=== PATIENT | male | born 1955 | race American Indian/Alaskan Native ===

== ENCOUNTER 2021-10-05 06:59 | Day surgery (SDC) | payer MEDICARE, OTHER ==
[2021-10-04 07:20] LABS: Hemoglobin 8.5 gm/dl (11.8-15.2); Mean Corpuscular HGB Conc 30 % (32-34); Mean Corpuscular Volume 100 fl (84-94); Platelet Count 193 K/mm3 (140-440); Red Blood Count 2.81 M/mm3 (3.65-5.03); Red Cell Distribution Width 17.8 % (13.2-15.2)
--- NOTE | 2021-10-04 07:29 | Anesthesia Day of Surgery ---
Anesthesia Day of Surgery - Day of Surgery Patient Examined: Yes Patient H&P Reviewed: Yes Patient is NPO: Yes
[2021-10-04 07:34] LABS: Blood Urea Nitrogen 66 mg/dL (9-20); Calcium 9.2 mg/dL (8.4-10.2); Hemolysis Index 309
--- NOTE | 2021-10-04 07:34 | Anesthesia Consultation ---
Anesthesia Consult and Med Hx Date of service: 10/04/21 - Airway Anesthetic Teeth Evaluation: Chipped ROM Head & Neck: Adequate Mental/Hyoid Distance: Adequate Mallampati Class: Class II Intubation Access Assessment: Good - Pre-Operative Health Status ASA Pre-Surgery Classification: ASA3 Proposed Anesthetic Plan: General - Pulmonary Hx Smoking: Yes (STOPPED 15 YEARS AGO) Home Oxygen Therapy: Yes Hx Sleep Apnea: Yes - Cardiovascular System Hx Hypertension: Yes - Central Nervous System Hx Psychiatric Problems: No - Endocrine Hx Renal Disease: Yes (Dialysis ) Hx End Stage Renal Disease: Yes Hx Liver Disease: Yes (Ascites) - Hematic Hx Anemia: Yes - Other Systems Hx Alcohol Use: No Hx Substance Use: No Hx Cancer: Yes (Prostate) Hx Obesity: No
[2021-10-04 07:37] LABS: BUN/Creatinine Ratio 6
[~2021-10-05 06:59] MED LIST: ACETAMINOPHEN 325 MG TAB PO NR; BUPIVACAINE/PF (0.25%) 2.5 MG/ML 30 ML VIAL INFILTRATI ONE; HYDROmorphone 1 MG/1 ML INJ IV PRN; LIDOCAINE (1%) 10 MG/1 ML VIAL 20 ML MDV ONE; LIDOCAINE MPF (2%) 20 MG/1 ML VIAL 5 ML ONE; MIDAZOLAM 2 MG/2 ML INJ IV NR; ONDANSETRON 4 MG/2 ML INJ IV NR; ONDANSETRON 4 MG/2 ML INJ IV PRN; ROCURONIUM 50 MG/5 ML INJ IV ONE; SODIUM CHLORIDE 0.9% 1000 ML 1,000 ML IV SCH; SODIUM CHLORIDE 0.9% 1000 ML 1,000 ML ONE; SODIUM CHLORIDE P/F VIAL 10 ML 10 ML ONE; ceFAZolin/STERILE WATER 2 GM/20 ML SYRINGE IV NR; dexAMETHasone 4 MG/ML VIAL ONE; fentaNYL 100 MCG/2 ML INJ ONE; propofoL 200 MG/20 ML VIAL IV ONE
[2021-10-05] MEDS ORDERED: ceFAZolin/STERILE WATER 2 GM/20 ML SYRINGE IV NR ×2 (07:25)
[2021-10-05] MEDS ORDERED: SODIUM CHLORIDE 0.9% 1000 ML 1,000 ML ONE (07:33)
[2021-10-05 07:48] LABS: Calcium 9.4 mg/dL (8.4-10.2)
[2021-10-05] MEDS ORDERED: dexAMETHasone 4 MG/ML VIAL ONE (08:05)
[2021-10-05] MEDS ORDERED: fentaNYL 100 MCG/2 ML INJ ONE (08:05)
[2021-10-05] MEDS ORDERED: MIDAZOLAM 2 MG/2 ML INJ ONE (08:05)
[2021-10-05] MEDS ORDERED: BUPIVACAINE-EPINEPHRINE/PF 0.25%-1:200,000 (30 ML) VIAL INFILTRATI ONE (08:05)
[2021-10-05] MEDS ORDERED: SODIUM CHLORIDE 0.9% 1000 ML 1,000 ML IV SCH (08:40)
[2021-10-05] MEDS ORDERED: LIDOCAINE (1%) 10 MG/1 ML VIAL 20 ML MDV ONE ×2 (08:40→09:45)
[2021-10-05] MEDS ORDERED: propofoL 200 MG/20 ML VIAL IV ONE (09:13)
[2021-10-05] MEDS ORDERED: ePHEDrine SULFATE 50 MG/1 ML INJ ONE (09:13)
[2021-10-05] MEDS ORDERED: ceFAZolin/Water 2 GM/20 ML 2 GM/20 ML SYRINGE IV ONE (09:28)
[2021-10-05] MEDS ORDERED: BUPIVACAINE/PF (0.5%) 5 MG/1 ML 30 ML VIAL INFILTRATI ONE ×2 (09:45→12:15)
[2021-10-05] MEDS ORDERED: ONDANSETRON 4 MG/2 ML INJ ONE (10:23)
[2021-10-05] MEDS ORDERED: dexAMETHasone 20 MG/5 ML VIAL ONE (10:23)
[2021-10-05] MEDS ORDERED: ROCURONIUM 50 MG/5 ML INJ IV ONE (10:23)
[2021-10-05] MEDS ORDERED: SODIUM CHLORIDE 0.9% IRRIG SOLN 2000 ML IR ONE (12:00)
[2021-10-05] MEDS ORDERED: WATER FOR IRRIG STERILE 1,500 ML BOTTLE IR ONE (12:00)
[2021-10-05] MEDS ORDERED: LIDOCAINE (1%) 10 MG/1 ML VIAL 20 ML MDV INFILTRATI ONE (12:15)
--- NOTE | 2021-10-05 13:24 | Operative Report ---
Operative Report Operative Report: Date: 10/04/2021 Preop diagnosis: Bilateral inguinal hernia Postop diagnosis: Same Procedure: Laparoscopic repair of bilateral inguinal hernia with mesh Surgeon: Dr. Coburn Financial Advisor Trainee: Dr. Alonso Anesthesia: General endotracheal anesthesia Specimen: None Estimated blood loss: 50 cc Procedure: Patient is taken to the OR and under general tracheal anesthesia timeout is completed consent on the chart. Patient received 2 g of IV Ancef and had a Paiz catheter placed. Both groins were prepped with ChloraPrep and draped in a sterile fashion prep extends to above the umbilicus. Infraumbilical incision is made carried sharply to the rectus sheath on the right side. The balloon Spacemaker is then placed and deployed under camera surveillance. The balloon Spacemaker is then removed and replaced without sign trocar. A 30 degree 10 mm camera is used to direct the procedure. 2 ports are placed 5 mm in size in the midline into the properitoneal space. The properitoneal space on the right side is dissected bluntly. The oblique muscles are exposed. Dissection is continued medially until the cord structures are encountered. The hernia sac is dissected away from the cord structures to the level of the external iliac vessels. The sac is transected with electrocautery grady. The end of the sac is co ntrolled with a an Endoloop of 2-0 Vicryl. A large 3D max mesh is advanced into the properitoneal space and positioned over the hernia defect. The medial aspect of the mesh is secured in place over the pubic tubercle with a absorbable tach. The properitoneal space on the left side is dissected bluntly. The oblique muscles are exposed. Dissection is continued medially until the cord structures are encountered. The hernia sac is dissected away from the cord structures to the level of the external iliac vessels. The sac is transected with electrocautery grady. The end of the sac is controlled with a an Endoloop of 2-0 Vicryl. A large 3D max mesh is advanced into the properitoneal space and positioned over the hernia defect. The medial aspect of the mesh is secured in place over the pubic tubercle with a absorbable tach. The sac is transected with electrocautery grady. The end of the sac is controlled with a an Endoloop of 2-0 Vicryl. A large 3D max mesh is advanced into the properitoneal space and positioned over the hernia defect. The medial aspect of the mesh is secured in place over the pubic tubercle with a absorbable tach. Patient tolerated seizure well. CO2 is allowed to exit the properitoneal space. Trochars are removed. A 0 Vicryl on a UR stitch is used to close the fascial defect in the infraumbilical position. The remaining ports and incisions are closed with 4-0 Monocryl and Dermabond.
[2021-10-05] MEDS ORDERED: HYDROmorphone 1 MG/1 ML INJ ONE (13:28)
[2021-10-05] MEDS ORDERED: oxyCODONE /ACETAMINOPHEN 5-325MG TAB ONE (13:29)
--- NOTE | 2021-10-05 16:20 | Post Anesthesia Evaluation ---
- Post Anesthesia Evaluation Patient Participated: Yes Airway Patent: Yes Stable Respiratory Function: Yes Nausea/Vomiting: No Temp > 96.8F: Yes Pain Manageable: Yes Adequeate Hydration: Yes Anesthesia Complications: No Block Receding Appropriately: Not Applicable Patient on Ventilator: No
[2021-10-05] MEDS ORDERED: oxyCODONE /ACETAMINOPHEN 5-325MG TAB PO ONE (17:00)
[2021-10-08 10:57] VITALS: BP 151/79
== END 2021-10-05 07:00 | disposition home or self-care (01) ==
LOC: OR 06:59
PROVIDERS: ATTEND Surgery
DX: K40.20 Bilateral inguinal hernia, without obstruction or gangrene, not specified as recurrent (principal); I12.0 Hypertensive chronic kidney disease with stage 5 chronic kidney disease or end stage renal disease; N18.6 End stage renal disease; E78.00 Pure hypercholesterolemia, unspecified; Z87.891 Personal history of nicotine dependence; Z99.2 Dependence on renal dialysis; Z79.899 Other long term (current) drug therapy; Z98.890 Other specified postprocedural states; Z20.822 Contact with and (suspected) exposure to COVID-19
CPT/HCPCS: 36415; 49650; 64450; 80048; 84132; 85027; C1726; C1781; J0690; J1100; J1170; J2250; J2405; J2704; J3010; J3490; J7030; U0003; J7120; J7121; Q0162

== ENCOUNTER 2021-10-10 14:47 | Outpatient (CLI) | payer MEDICARE, OTHER ==
[2021-10-10 15:11] LABS: Basophils # (Auto) 0.1 K/mm3 (0.0-0.1); Eosinophils # (Auto) 0.2 K/mm3 (0.0-0.4); Eosinophils % (Auto) 2.9 % (0.0-4.3); Hematocrit 26.5 % (35.5-45.6); Hemoglobin 8.4 gm/dl (11.8-15.2); Lymphocytes # (Auto) 0.5 K/mm3 (1.2-5.4); Lymphocytes % (Auto) 7.4 % (13.4-35.0); Mean Corpuscular HGB Conc 32 % (32-34); Mean Corpuscular Volume 100 fl (84-94); Monocytes % (Auto) 15.4 % (0.0-7.3); Platelet Count 181 K/mm3 (140-440); Red Blood Count 2.65 M/mm3 (3.65-5.03); Red Cell Distribution Width 17.8 % (13.2-15.2)
[2021-10-10 15:27] LABS: Calcium 8.6 mg/dL (8.4-10.2)
== END 2021-10-10 14:48 | disposition home or self-care (01) ==
LOC: LAB 14:47
PROVIDERS: ATTEND Surgery
DX: R10.2 Pelvic and perineal pain (principal)
CPT/HCPCS: 36415; 80048; 85025

== ENCOUNTER 2022-01-02 10:27 | Outpatient (CLI) | payer MEDICARE, OTHER ==
--- NOTE | 2022-01-02 11:51 | Cat Scan Report ---
CT ABDOMEN AND PELVIS WITHOUT CONTRAST HISTORY: R19.09 OTHER INTRA-ABDOMINAL AND PELVIC SWELLING MASS AND LUMP COMPARISON: 09/08/2021 TECHNIQUE: Axial CT images were obtained through the abdomen and pelvis without IV contrast. Sagittal and coronal reformatted images. All CT scans at this location are performed using CT dose reduction for ALARA by means of automated exposure control. FINDINGS: CT ABDOMEN: Lung Bases: Mild cardiomegaly and trace bilateral pleural effusions are present. The visualized lung parenchyma is adequately aerated. Liver: No significant abnormality. Biliary: The gallbladder is partially contracted but no obvious gallstones. No biliary dilatation. Spleen: No significant abnormality. Unenlarged. Pancreas: No significant abnormality. Adrenals: No significant abnormality. Kidneys: Scattered small bilateral renal cysts are unchanged. The kidneys appear mildly atrophic. No obvious mass on noncontrast CT. No nephrolithiasis or hydronephrosis. Lymphatics: No pathologic adenopathy. Vasculature: Moderate atherosclerotic disease in the aorta and iliac arteries without acute abnormali ty, unchanged. Bowel/Peritoneum: Previously described left inguinal hernia containing short segment of small bowel i s no longer seen. There is however a moderate degree of fluid in the left inguinal canal extending to the superior scrotal sac. The inferior scrotal sac is not included. There is no evidence for bowel o bstruction or focal inflammation. No obvious mass on this limited noncontrast CT. The appendix is nor mal. There is small perihepatic, perisplenic and pelvic ascites. No abscess or free air. CT PELVIS: : The bladder is mostly empty but unremarkable. Normal prostate gland. Osseous Structures: No acute abnormality or bone lesion. Stable mild lumbar spondylosis. Additional Findings: None IMPRESSION: Left inguinal hernia and mild small bowel obstruction pattern has resolved since the previous exam as described. There is however a moderate degree of fluid in the left inguinal canal. Mild CHF. Small ascites. No acute inflammatory process is identified. Signer Name: Shade Franco Jr, MD Signed: 01/02/2022 11:46 AM Workstation Name: [id number]
== END 2022-01-02 10:28 | disposition home or self-care (01) ==
LOC: CT 10:27
PROVIDERS: ATTEND Surgery
DX: N28.1 Cyst of kidney, acquired (principal); J90 Pleural effusion, not elsewhere classified; I51.7 Cardiomegaly; I70.0 Atherosclerosis of aorta; K40.90 Unilateral inguinal hernia, without obstruction or gangrene, not specified as recurrent; I50.9 Heart failure, unspecified; R19.09 Other intra-abdominal and pelvic swelling, mass and lump
CPT/HCPCS: 74176

== ENCOUNTER 2022-01-12 04:08 | Emergency (ER) | payer MEDICARE, OTHER | END 2022-01-12 05:01 | disposition left against medical advice (07) | LOC: ED 04:08 | DX: R10.9 Unspecified abdominal pain (principal); Z53.21 Procedure and treatment not carried out due to patient leaving prior to being seen by health care provider ==

== ENCOUNTER 2022-01-12 06:55 | Emergency (ER) | payer MEDICARE, OTHER ==
[2022-01-12] MEDS ORDERED: ONDANSETRON 4 MG/2 ML INJ IV ONE (07:24)
[2022-01-12] MEDS ORDERED: SODIUM CHLORIDE 0.9% 500 ML 500 ML IV ONE (07:25)
--- NOTE | 2022-01-12 07:31 | Emergency Department Report ---
HPI - General Chief Complaint: Abdominal Pain Time Seen by Provider: 01/12/22 07:16 - HPI HPI: Room 3 The patient is a 66-year-old male present with chief complaint of nausea vomiting diarrhea. The patient states he began a new medication for eczema 2 weeks ago Dupixent. The patient states for the past week he has had nausea vomiting and diarrhea. Patient states he is vomiting approximately 4-5 times a day and having 6 episodes of diarrhea a day. Patient states he feels weak and dehydrated. Patient denies any recent antibiotic use. Patient denies history of fever. Patient currently denies abdominal pain. Patient has a history end- stage renal disease and normally goes every Friday and Friday but received dialysis yesterday. ED Past Medical Hx - Past Medical History Hx Hypertension: Yes Hx Congestive Heart Failure: Yes Hx Liver Disease: Yes (Ascites) Hx Renal Disease: Yes (Dialysis ) Hx of Cancer: Yes (Prostate CA status post brachytherapy) Additional medical history: Abdominal hernia - Surgical History Additional Surgical History: Prostate seed implant, left upper extremity fist raeann, hernia repair - Family History Family history: no significant - Social History Smoking Status: Former Smoker (None x20 years) Substance Use Type: None - Medications Home Medications: Home Medications Medication Instructions Recorded Confirmed Last Taken Type AtorvaSTATin [Lipitor] 40 mg PO QHS 09/10/21 10/05/21 10/04/21 20:00 History Sildenafil [Revatio] 40 mg PO TID 09/10/21 10/05/21 10/04/21 17:00 History Spironolactone [Aldactone] 50 mg PO QDAY 09/10/21 10/05/21 10/04/21 09:00 History Torsemide [Demadex] 200 mg PO QAM&QHS 09/10/21 10/05/21 10/04/21 20:00 History carvediloL [Coreg] 25 mg PO BID 09/10/21 10/05/21 10/05/21 05:00 History cloNIDine [Catapres] 0.2 mg PO BID 09/10/21 10/05/21 10/05/21 05:00 History Ondansetron [Zofran Odt] 4 mg PO TID 10/01/21 10/05/21 10/04/21 20:00 History Sucroferric Oxyhydroxide(Nf) 1,000 mg PO TIDAC 10/01/21 10/05/21 10/04/21 17:00 History [Velphoro (Nf)] cloNIDine-TTS PATCH [Catapres-Tts 1 patch TD Q7D 10/01/21 10/05/21 09/30/21 09:00 History 0.3mg Patch] Diphenoxylate/Atropine [Lomotil] 2 tab PO QID PRN #20 01/12/22 Unknown Rx HYDROcodone/APAP 5-325 [[place] 1 - 2 each PO Q6HR PRN #10 tablet 01/12/22 Unknown Rx 5/325] Ondansetron [Zofran ODT TAB] 8 mg PO Q8HR #20 tab.rapdis 01/12/22 Unknown Rx ED Review of Systems ROS: Stated complaint: SICK ON STOMACH Other details as noted in HPI Constitutional: denies: fever Eyes: denies: eye pain ENT: denies: throat pain Respiratory: no symptoms reported Cardiovascular: denies: chest pain Endocrine: no symptoms reported Gastrointestinal: nausea, vomiting, diarrhea. denies: abdominal pain Genitourinary: denies: testicular pain Musculoskeletal: denies: back pain Neurological: denies: headache Physical Exam - Physical Exam Physical Exam: GENERAL: The patient is well-developed well-nourished male lying on stretcher not appearing to be in acute distress. [] HEENT: Normocephalic. Atraumatic. Extraocular motions are intact. Patient has moist mucous membranes. NECK: Supple. Trachea midline CHEST/LUNGS: Clear to auscultation. There is no respiratory distress noted. HEART/CARDIOVASCULAR: Regular. There is no tachycardia. There is no gallop rub or murmur. ABDOMEN: Abdomen is soft, with mild discomfort to palpation in the left lower quadrant. There is no rebound or guard. Patient has normal bowel sounds. There is no abdominal distention. SKIN: There is no rash. There is no edema. There is no diaphoresis. NEURO: The patient is awake, alert, and oriented. The patient is cooperative. The patient has no focal neurologic deficits. The patient has normal speech. GCS 15 MUSCULOSKELETAL: There is no evidence of acute injury. ED Medical Decision Making - Lab Data Result diagrams: 01/12/22 07:36 01/12/22 07:36 - Radiology Data Radiology results: report reviewed (CT abdomen pelvis), image reviewed (CT abdomen pelvis) Signed Patient: KEREN REINA MR#: [id number] : 1955 ct:[id number] Age/Sex: 66 / M ADM Date: 01/12/22 Loc: ED Attending Dr: Ordering Physician: FERNANDO STEPHEN MD Date of Service: 01/12/22 Procedure(s): CT abdomen pelvis wo con Accession Number(s): [id number] cc: FERNANDO STEPHEN MD CT ABDOMEN AND PELVIS WITHOUT CONTRAST INDICATION / CLINICAL INFORMATION: LLQ tenderness, N/V/D WO CONTRAST. TECHNIQUE: Axial CT images were obtained through the abdomen and pelvis without IV contrast. All CT scans at this location are performed using CT dose reduction for ALARA by means of automated exposure control. COMPARISON: 01/02/2022 FINDINGS: LOWER CHEST: Mild pulmonary edema and small bilateral effusions, overall similar to reference. LIVER: No significant abnormality. GALLBLADDER: Thick-walled but similar to reference, likely attributable to fluid status. PANCREAS: No significant abnormality. SPLEEN: No significant abnormality. ADRENALS: No significant abnormality. RIGHT KIDNEY / URETER: Multiple cysts. LEFT KIDNEY / URETER: Multiple cysts. STOMACH / SMALL B OWEL: No significant abnormality. COLON: Diverticulosis without acute inflammation. APPENDIX: No acute abnormality. Inspissated stool versus appendicolith within the appendix. PERITONEUM: Small amount of abdominopelvic ascites. LYMPH NODES: Single mildly enlarged retroperitoneal lymph node within the left periaortic region at the level of the left renal vein is unchanged in size and measures approximately 1.3 cm in short axis dimension. AORTA / ARTERIES/ VEINS: Mild atherosclerotic calcification without acute abnormality. URINARY BLADDER: No significant abnormality. REPRODUCTIVE ORGANS: Fluid noted within the left inguinal canal, mildly decreased in amount compared to reference exam ADDITIONAL FINDINGS: None. SKELETAL SYSTEM: No significant abnormality. IMPRESSION: 1. No acute abnormality in the abdomen or pelvis. 2. Findings suggestive of volume overload with mild pulmonary edema, small bilateral effusions and small amount of abdominopelvic ascites as above. This is overall similar to reference exam from January 02. 3. Other chronic findings as above. Signer Name: Nic Gloria MD Signed: 01/12/2022 8:19 AM Workstation Name: [id number] Transcribed By: SB Dictated By: NIC GLORIA MD Electronically Authenticated By: NIC GLORIA MD Signed Date/Time: 01/12/22818 DD/ 3 TD/TT: Print Cancel - Differential Diagnosis Gastroenteritis, partial SBO, diverticulitis, colitis Critical care attestation.: If time is entered above; I have spent that time in minutes in the direct care of this critically ill patient, excluding procedure time. ED Disposition Clinical Impression: Nausea vomiting and diarrhea, Transaminitis Disposition: HOME / SELF CARE / HOMELESS Is pt being admited?: No Does the pt Need Aspirin: No Condition: Stable Instructions: Nausea and Vomiting, Adult, [id number], Diarrhea, Adult, [id number] Additional Instructions: Return to the emergency department should you develop worsening symptoms, inability to tolerate food or liquids, high fever or any other concerns Prescriptions: Diphenoxylate/Atropine [Lomotil] 2 tab PO QID PRN #20 PRN Reason: Diarrhea HYDROcodone/APAP 5-325 [[place] 5/325] 1 - 2 each PO Q6HR PRN #10 tablet PRN Reason: Pain Ondansetron [Zofran ODT TAB] 8 mg PO Q8HR #20 tab.rapdis Referrals: KRUNAL LLAMAS MD [Primary Care Provider] - 3-5 Days LISSY DANIELLE MD [Staff Physician] - 3-5 Days (Dr. Danielle is a cpr instructor. Please follow-up with him for further evaluation) Time of Disposition: 08:53
[2022-01-12 07:59] LABS: Hematocrit 30.6 % (35.5-45.6); Mean Corpuscular HGB Conc 33 % (32-34); Mean Corpuscular Volume 97 fl (84-94); Platelet Count 189 K/mm3 (140-440); Red Blood Count 3.14 M/mm3 (3.65-5.03); Red Cell Distribution Width 18.7 % (13.2-15.2)
[2022-01-12 08:21] LABS: Albumin 4.4 g/dL (3.9-5); Calcium 9.5 mg/dL (8.4-10.2)
--- NOTE | 2022-01-12 08:23 | Cat Scan Report ---
CT ABDOMEN AND PELVIS WITHOUT CONTRAST INDICATION / CLINICAL INFORMATION: LLQ tenderness, N/V/D WO CONTRAST. TECHNIQUE: Axial CT images were obtained through the abdomen and pelvis without IV contrast. All CT scans at this location are performed using CT dose reduction for ALARA by means of automated exposure control. COMPARISON: 01/02/2022 FINDINGS: LOWER CHEST: Mild pulmonary edema and small bilateral effusions, overall similar to reference. LIVER: No significant abnormality. GALLBLADDER: Thick-walled but similar to reference, likely attributable to fluid status. PANCREAS: No significant abnormality. SPLEEN: No significant abnormality. ADRENALS: No significant abnormality. RIGHT KIDNEY / URETER: Multiple cysts. LEFT KIDNEY / URETER: Multiple cysts. STOMACH / SMALL BOWEL: No significant abnormality. COLON: Diverticulosis without acute inflammation. APPENDIX: No acute abnormality. Inspissated stool versus appendicolith within the appendix. PERITONEUM: Small amount of abdominopelvic ascites. LYMPH NODES: Single mildly enlarged retroperitoneal lymph node within the left periaortic region at t he level of the left renal vein is unchanged in size and measures approximately 1.3 cm in short axis dimension. AORTA / ARTERIES/ VEINS: Mild atherosclerotic calcification without acute abnormality. URINARY BLADDER: No significant abnormality. REPRODUCTIVE ORGANS: Fluid noted within the left inguinal canal, mildly decreased in amount compared to reference exam ADDITIONAL FINDINGS: None. SKELETAL SYSTEM: No significant abnormality. IMPRESSION: 1. No acute abnormality in the abdomen or pelvis. 2. Findings suggestive of volume overload with mild pulmonary edema, small bilateral effusions and s mall amount of abdominopelvic ascites as above. This is overall similar to reference exam from January 02. 3. Other chronic findings as above. Signer Name: Nic Gloria MD Signed: 01/12/2022 8:19 AM Workstation Name: [id number]
[2022-01-12] MEDS ORDERED: DIPHENOXYLATE/ATROPINE TAB PO ONE (08:39)
[2022-01-12 08:45] VITALS: BP 151/88
[2022-01-12 09:08] LABS: Total Cells Counted 100
[2022-01-12 09:09] LABS: Anisocytosis 1+; Burr Cells Few; Ovalocytes Few; Platelet Estimate Consistent w Auto; Poikilocytosis 1+; Tear Drop Cells Few
== END 2022-01-12 09:16 | disposition home or self-care (01) ==
LOC: ED 06:55
DX: R11.2 Nausea with vomiting, unspecified (principal); R19.7 Diarrhea, unspecified; R74.01 Elevation of levels of liver transaminase levels; I11.0 Hypertensive heart disease with heart failure; I50.9 Heart failure, unspecified; K76.9 Liver disease, unspecified; Z85.9 Personal history of malignant neoplasm, unspecified; Z87.891 Personal history of nicotine dependence
CPT/HCPCS: 36415; 74176; 80053; 83690; 85007; 85025; 96374; 99284; J2405; J7040

== ENCOUNTER 2022-01-17 02:14 | Emergency (ER) | payer MEDICARE, OTHER ==
[2022-01-17 02:24] VITALS: BP 140/86
== END 2022-01-17 06:14 | disposition left against medical advice (07) ==
LOC: ED 02:14
DX: K59.00 Constipation, unspecified (principal); Z53.21 Procedure and treatment not carried out due to patient leaving prior to being seen by health care provider